=== PATIENT | male | born 1965 | race Caucasian/White ===

== ENCOUNTER 2016-10-17 12:52 | Emergency (ER) | payer BC ==
[~2016-10-17] VITALS: Ht 180.3 cm; Wt 73.4 kg
[~2016-10-17 12:52] MED LIST: NO HOME MEDS
[2016-10-17] MEDS ORDERED: LEVOTHYROXINE50 MCG PO (13:28)
[2016-10-17 13:45] LABS: HEMATOCRIT 44.2 % (38.0-50.0); MCH 29.4 PG (29.0-34.0); MCHC 33.5 G/DL (30.0-36.0); MCV 87.7 FL (86-99); MEAN PLAT.VOLUME 9.5 uM^3 (9.0-12.4); PLATELET COUNT 254 K/uL (156-360); RBC DIS.WIDTH-CV 12.5 % (11.8-14.6); RBC DIS.WIDTH-SD 40.3 % (39-53); RED BLOOD COUNT 5.04 M/uL (4.00-5.50); WHITE BLOOD COUNT 5.1 K/uL (4.1-10.2)
[2016-10-17 13:57] LABS: CHLORIDE 105 mEq/L (99-109); POTASSIUM 4.1 mEq/L (3.7-5.4); SODIUM 139 mEq/L (136-147)
[2016-10-17 13:58] LABS: MAGNESIUM 2.3 mg/dL (1.3-2.7)
[2016-10-17 13:59] LABS: GLUCOSE 108 mg/dL (70-99)
[2016-10-17 14:01] LABS: ANION GAP 8 MEQ/L (2-14)
[2016-10-17 14:03] LABS: GFR ESTIMATE (CALCULATED) > 59 mL/min/
[2016-10-17 14:04] LABS: UREA NITROGEN (BUN) 9 mg/dL (9-23)
[2016-10-17 14:06] LABS: TROP-I INTERPRETATION NEGATIVE; TROPONIN-I < 0.01 ng/mL (0.0-0.30)
[2016-10-17 16:19] LABS: TROP-I INTERPRETATION NEGATIVE; TROPONIN-I < 0.01 ng/mL (0.0-0.30)
[2016-10-17] MEDS ORDERED: NORCO 10/3251 TABLET PO (16:27)
[2016-10-17] MEDS ORDERED: VALTREX1000 MG PO (16:27)
[2016-10-17] MEDS ORDERED: MOTRIN800 MG PO (16:27)
[2016-10-17 16:53] VITALS: BP 122/83
== END 2016-10-17 16:55 | disposition home or self-care (01) ==
LOC: EME 12:52
PROVIDERS: Physician Assistant
DX: B02.9 Zoster without complications (principal); R07.89 Other chest pain; M79.602 Pain in left arm; I45.10 Unspecified right bundle-branch block; Z87.891 Personal history of nicotine dependence
CPT/HCPCS: 71020; 80048; 83735; 84484; 85027; 93005; 99281; 99285

== ENCOUNTER 2016-12-29 12:13 | Emergency (ER) | payer BC ==
[~2016-12-29] VITALS: Ht 177.8 cm; Wt 82.9 kg
[~2016-12-29 12:13] MED LIST changes: +LEVOTHYROXINE50 MCG PO; +MOTRIN800 MG PO; +NORCO 10/3251 TABLET PO; +VALTREX1000 MG PO
[2016-12-29 13:26] LABS: HEMATOCRIT 41.7 % (38.0-50.0); MCH 30.4 PG (29.0-34.0); MCHC 34.1 G/DL (30.0-36.0); MCV 89.3 FL (86-99); MEAN PLAT.VOLUME 10.1 uM^3 (9.0-12.4); PLATELET COUNT 266 K/uL (156-360); RBC DIS.WIDTH-CV 12.3 % (11.8-14.6); RBC DIS.WIDTH-SD 40.1 % (39-53); RED BLOOD COUNT 4.67 M/uL (4.00-5.50); WHITE BLOOD COUNT 4.7 K/uL (4.1-10.2)
[2016-12-29 13:38] LABS: CHLORIDE 105 mEq/L (99-109); POTASSIUM 4.6 mEq/L (3.7-5.4); SODIUM 141 mEq/L (136-147)
[2016-12-29 13:39] LABS: ADD MIUA? NO; BILIRUBIN NEGATIVE; BLOOD NEGATIVE; COLOR STRAW ((YELLOW)); GLUCOSE (STRIP) NEGATIVE; KETONES NEGATIVE; LEUKOCYTES NEGATIVE; NITRITE NEGATIVE; PROTEIN (STRIP) NEGATIVE; SPECIFIC GRAVITY 1.004 (1.000-1.030); UCUL ADDED? NO; UROBILINOGEN 0.2 MG/DL (0.2-1.0)
[2016-12-29 13:40] LABS: GLUCOSE 90 mg/dL (70-99)
[2016-12-29 13:41] LABS: ANION GAP 11 MEQ/L (2-14)
[2016-12-29 13:42] LABS: TOTAL BILIRUBIN 0.8 mg/dL (0.0-1.0)
[2016-12-29 13:44] LABS: ALKALINE PHOSPHATASE 77 IU/L (3-129); GFR ESTIMATE (CALCULATED) > 59 mL/min/
[2016-12-29 13:45] LABS: UREA NITROGEN (BUN) 11 mg/dL (9-23)
[2016-12-29 15:10] VITALS: BP 147/97
== END 2016-12-29 15:11 | disposition left against medical advice (07) ==
LOC: EME 12:13
DX: R10.9 Unspecified abdominal pain (principal); Z53.21 Procedure and treatment not carried out due to patient leaving prior to being seen by health care provider
CPT/HCPCS: 80053; 81003; 85027

== ENCOUNTER → 2017-02-24 | Outpatient (CLI) | payer BC ==
[~2017-02-24] VITALS: Ht 180.3 cm; Wt 81.8 kg
== END | disposition home or self-care (01) ==
LOC: AMB 12:21
DX: D12.5 Benign neoplasm of sigmoid colon (principal); K63.5 Polyp of colon; K22.10 Ulcer of esophagus without bleeding; R19.7 Diarrhea, unspecified; K76.89 Other specified diseases of liver; E03.9 Hypothyroidism, unspecified; E11.9 Type 2 diabetes mellitus without complications; K29.70 Gastritis, unspecified, without bleeding; K64.8 Other hemorrhoids; Z87.891 Personal history of nicotine dependence; K21.9 Gastro-esophageal reflux disease without esophagitis
CPT/HCPCS: 88305; 88342 TC; J2250; J3010